=== PATIENT | male | born 1975 | race Caucasian/White ===

== ENCOUNTER 2019-10-27 13:56 | Inpatient (IN) | payer OTHER ==
[~2019-10-27] VITALS: Ht 175.3 cm; Wt 79.4 kg
[2019-11-22] MEDS ORDERED: TREMFYA100 MG/11 (15:34)
== END 2019-11-25 16:44 | disposition home or self-care (01) | DRG 331 ==
LOC: RECOVERY 11-22 07:00 → O/R 11-22 08:13 → SURG 11-22 08:13 → EDBD 11-22 09:00 → RECOVERY 11-22 09:00 → SURG 11-22 18:38
PROVIDERS: ADMIT Colon & Rectal Surgery; ATTEND Colon & Rectal Surgery
PROC: 0DBN4ZZ Excision of Sigmoid Colon, Percutaneous Endoscopic Approach (ICD-10-PCS; principal; 2019-11-22 07:00)
DX: K57.32 Diverticulitis of large intestine without perforation or abscess without bleeding (principal)

== ENCOUNTER → 2021-01-18 08:00 | Outpatient (CLI) | payer OTHER ==
[~2021-01-18 08:00] MED LIST: TREMFYA100 MG/11
== END | disposition home or self-care (01) ==
LOC: LAB 08:00 → ADM 14:00 → EDSTATUS 01-25 14:00 → AMB-ENDOS 01-25 14:00
PROVIDERS: ATTEND Colon & Rectal Surgery
DX: U07.1 COVID-19 (principal); K57.20 Diverticulitis of large intestine with perforation and abscess without bleeding; Z03.818 Encounter for observation for suspected exposure to other biological agents ruled out; K92.1 Melena

== ENCOUNTER → 2021-03-15 | Day surgery (SDC) | payer OTHER | END | disposition home or self-care (01) | LOC: ADM 03-11 14:15 → AMB-ENDOS 06:00 | PROVIDERS: ATTEND Colon & Rectal Surgery | DX: K57.32 Diverticulitis of large intestine without perforation or abscess without bleeding (principal); K64.1 Second degree hemorrhoids ==